=== PATIENT | female | born 1990 | race Caucasian/White ===

== ENCOUNTER 2016-04-19 22:35 | Emergency (ER) | payer OTHER ==
[2016-04-19 22:51] VITALS: BP 141/68; PULSE 103; TEMP 98; BMI 30.4
--- NOTE | 2016-04-20 00:21 | PDOC ---
History of Present Illness - General Chief Complaint: Sore Throat Stated Complaint: SOAR THROAT Time Seen by Provider: 04/20/16 00:10 History Source: Patient Exam Limitations: No Limitations - History of Present Illness Timing/Duration: other (x4d) Past History - Past Medical History Allergies/Adverse Reactions: Allergies Allergy/AdvReac Type Severity Reaction Status Date / Time No Known Allergies Allergy Verified 04/19/16 22:48 Home Medications: Ambulatory Orders NK [No Known Home Medication] 04/19/16 Anemia: No Asthma: No Cancer: No Cardiac Disorders: No CVA: No COPD: No CHF: No DVT: No Dementia: No Diabetes: No HTN: Yes (h/o labile htn) Suicide Attempt (Hx): No Seizures: No Thyroid Disease: No - Immunization History Td Vaccination: Yes Immunization Up to Date: Yes - Psycho/Social/Smoking Cessation Hx Anxiety: No Suicidal Ideation: No Smoking Status: No Smoking History: Never smoked Have you smoked in the past 12 months: No Number of Cigarettes Smoked Daily: 0 Information on smoking cessation initiated: No Hx Alcohol Use: No Drug/Substance Use Hx: No Substance Use Type: None Hx Substance Use Treatment: No Review of Systems - Review of Systems Able to Perform ROS?: Yes Comments:: 04/20/16 00:51 CONSTITUTIONAL: Absent: fever, chills, diaphoresis, generalized weakness, malaise, loss of appetite HEENT: +sore throat; R>L ear "fullness" Absent: rhinorrhea, nasal congestion, throat swelling, difficulty swallowing, mouth swelling, ear pain, eye pain, visual Changes CARDIOVASCULAR: Absent: chest pain, loss of consciousness, palpitations, irregular heart rate, peripheral edema RESPIRATORY: Absent: cough, shortness of breath, dyspnea with exertion, orthopnea, wheezing, stridor, hemoptysis GASTROINTESTINAL: Absent: abdominal pain, abdominal distension, nausea, vomiting, diarrhea, constipation, melena, hematochezia GENITOURINARY: Absent: dysuria, frequency, urgency, hesitancy, hematuria, flank pain, genital pain MUSCULOSKELETAL: Absent: myalgia, arthralgia, joint swelling SKIN: Absent: rash, itching, pallor HEMATOLOGIC/IMMUNOLOGIC: Absent: easy bleeding, easy bruising, lymphadenopathy, frequent infections ENDOCRINE: Absent: unexplained weight gain, unexplained weight loss, heat intolerance, cold intolerance NEUROLOGIC: Absent: headache, focal weakness or paresthesias, dizziness, unsteady gait, seizure, mental status changes, bladder or bowel incontinence PSYCHIATRIC: Absent: anxiety, depression, suicidal or homicidal ideation, hallucinations. Is the patient limited Tamazight proficient: No *Physical Exam - Vital Signs Last Vital Signs Temp Pulse Resp BP Pulse Ox 98.0 F 103 H 14 141/68 100 04/19/16 22:49 04/19/16 22:49 04/19/16 22:49 04/19/16 22:49 04/19/16 22:49 - Physical Exam Comments: 04/20/16 00:53 GENERAL: Well developed, well nourished. Awake and alert. No acute distress. HEENT: Normocephalic, atraumatic. PERRLA, EOMI. No conjunctival pallor. Sclera are non- icteric. Moist mucous membranes. Oropharynx is clear. NECK: Supple. Full ROM. No JVD. Carotid pulses 2+ and symmetric, without bruits. No thyromegaly. No lymphadenopathy. CARDIOVASCULAR: Regular rate and rhythm. No murmurs, rubs, or gallops. Distal pulses are 2+ and symmetric. PULMONARY: No evidence of respiratory distress. Lungs clear to auscultation bilaterally. No wheezing, rales or rhonchi. ABDOMINAL: Soft. Non-tender. Non-distended. No rebound or guarding. No organomegaly. Normoactive bowel sounds. MUSCULOSKELETAL Normal range of motion at all joints. No bony deformities or tenderness. No CVA tenderness. EXTREMITIES: No cyanosis. No clubbing. No edema. No calf tenderness. SKIN: Warm and dry. Normal capillary refill. No rashes. No jaundice. NEUROLOGICAL: Alert, awake, appropriate. Cranial nerves 2-12 intact. No deficits to light touch and temperature in face, upper extremities and lower extremities. No motor deficits in the in face, upper extremities and lower extremities. Normoreflexic in the upper and lower extremities. Normal speech. Toes are down- going bilaterally. Gait is normal without ataxia. PSYCHIATRIC: Cooperative. Good eye contact. Appropriate mood and affect. ED Treatment Course - LABORATORY CBC & Chemistry Diagram: 04/20/16 00:36 04/20/16 00:36 *DC/Admit/Observation/Transfer Diagnosis at time of Disposition: Viral infection Acute pharyngitis Qualifiers: Pharyngitis/tonsillitis etiology: unspecified etiology Qualified Code(s): J02.9 - Acute pharyngitis, unspecified - Discharge Dispostion Disposition: HOME Condition at time of disposition: Improved - Patient Instructions Printed Discharge Instructions: DI for Viral Syndrome, DI for Viral Pharyngitis Additional Instructions: Rest Increase fluids Gargle with salt water Take tylenol/motrin as needed for fever/pain Return to the ER for severe/persistent/worsening symptoms Progress Note - Progress Note Progress Note: 25-year-old female presents to the emergency department complaining of a sore throat 4 days with right greater than left ear fullness without fever, chills, dizziness, lightheadedness, nausea/vomiting, difficulty swallowing, chest pain, shortness of breath, abdominal pains, flank pains, extremity numbness or tingling sensation. Patient says she feels generalized malaise. Her and son was recently diagnosed with a virus.
[2016-04-20] MEDS ORDERED: SODIUM CHLORIDE 1,000 ML IV STA (00:23)
--- NOTE | 2016-04-20 00:25 | PDOC ---
*Physical Exam - Vital Signs Last Vital Signs Temp Pulse Resp BP Pulse Ox 98.0 F 103 H 14 141/68 100 04/19/16 22:49 04/19/16 22:49 04/19/16 22:49 04/19/16 22:49 04/19/16 22:49 ED Treatment Course - LABORATORY CBC & Chemistry Diagram: 04/20/16 00:36 04/20/16 00:36 Medical Decision Making - Medical Decision Making 04/20/16 00:25 Pt seen by the Advanced Practice Provider under my direct supervision Ancillary studies reviewed I agree with plan as outlined by the Advanced Practice Provider BUCK Coles *DC/Admit/Observation/Transfer Diagnosis at time of Disposition: Acute pharyngitis, Viral syndrome - Discharge Dispostion Disposition: HOME Condition at time of disposition: Improved - Referrals Referrals: Po Kyle MD [Primary Care Provider] - - Patient Instructions Printed Discharge Instructions: DI for Viral Pharyngitis, DI for Viral Syndrome Additional Instructions: Rest Increase fluids Gargle with salt water Take tylenol/motrin as needed for fever/pain Return to the ER for severe/persistent/worsening symptoms
[2016-04-20 01:11] LABS: BASOPHIL 1.4 % (0-2.0); EOSINOPHIL 1.4 % (0-4.5); MCH 29.5 pg (25.7-33.7); MCHC 34.1 g/dl (32.0-36.0); MEAN CELL VOLUME 86.6 fl (80-96); MEAN PLT VOLUME 8.8 fl (7.5-11.1); NEUTROPHILS 56.8 % (42.8-82.8); PLATELET COUNT 301 K/MM3 (134-434); RDW 12.8 % (11.6-15.6); WHITE BLOOD COUNT 10.1 K/mm3 (4.0-10.0)
[2016-04-20 01:43] LABS: ALBUMIN 4.3 g/dl (3.4-5.0); ALK PHOS 93 U/L (45-117); ANION GAP 12 (8-16); BILIRUBIN,TOTAL 0.4 mg/dL (0.2-1.0); CALCIUM 9.5 mg/dL (8.5-10.1); CO2 26 mmol/L (21-32); CREATININE 0.6 mg/dL (0.55-1.02); GLUCOSE,RANDOM 79 mg/dL (74-106); SGOT/AST 13 U/L (15-37); SGPT/ALT 18 U/L (12-78); TOT PROT 8.1 g/dl (6.4-8.2)
== END 2016-04-20 04:48 | disposition home or self-care (01) ==
LOC: JER 22:35
PROC: 3E0337Z Introduction of Electrolytic and Water Balance Substance into Peripheral Vein, Percutaneous Approach (ICD-10-PCS; principal; 2016-04-19)
DX: J02.9 Acute pharyngitis, unspecified (principal); I10 Essential (primary) hypertension
CPT/HCPCS: 36415; 80053; 85025; 87070; 87430; 87804; 96360; 99281-25

== ENCOUNTER 2016-04-22 16:49 | Emergency (ER) | payer OTHER ==
[2016-04-22 16:54] VITALS: BP 145/93; TEMP 98.3; BMI 30.4
[2016-04-22] MEDS ORDERED: SODIUM CHLORIDE 0.9% 1000 ML INFUS.BAG IV ONE (20:13)
[2016-04-22] MEDS ORDERED: ONDANSETRON 4 MG/2 ML VIAL IVPUSH ONE (20:13)
[2016-04-22] MEDS ORDERED: ACETAMINOPHEN 325 MG TABLET (FP) PO ONE (20:14)
[2016-04-22] MEDS ORDERED: ONDANSETRON 4 MG/2 ML VIAL ONE (20:38)
[2016-04-22] MEDS ORDERED: ACETAMINOPHEN 325 MG TABLET (FP) ONE (20:38)
[2016-04-22] MEDS ORDERED: ALBUTEROL SO4 2.5/IPRATROPIUM 0.5 INH SOL 3 ML VIAL.NEB. NEB ONE ×2 (20:48→21:01)
--- NOTE | 2016-04-22 20:48 | PDOC ---
History of Present Illness - General Chief Complaint: Nausea/Vomiting Stated Complaint: VOMITING/BODY ACHES/SORE THROAT/SOB Time Seen by Provider: 04/22/16 19:32 - History of Present Illness Initial Comments: 04/22/16 20:45 CHIEF COMPLAINT: vomiting, URI symptoms HISTORY OF PRESENT ILLNESS: 25 yo F with no PMH returns to ED today with vomiting, headache, body aches, sore throat, runny nose. Patient states she vomited 8 times today.She denies fever, diarrhea but reports chills. She was seen in this ED two days ago and discharged with diagnosis of viral syndrome. She has not taken any medications at home other than 800 mg of ibuprofen one time today without relief. No recent travel or sick contacts. PAST MEDICAL HISTORY: Denies past medical history FAMILY HISTORY: Denies SOCIAL HISTORY:Denies tobacco, alcohol, illicit drug use. SURGICAL HISTORY: Denies ALLERGIES: naproxen REVIEW OF SYSTEMS General/Constitutional: Denies fever or chills. Denies weakness, weight change. HEENT: Denies change in vision. Denies ear pain or discharge. Denies sore throat. Cardiovascular: Denies chest pain or shortness of breath. Respiratory: Denies cough, wheezing, or hemoptysis. Gastrointestinal: Denies nausea, vomiting, diarrhea or constipation. Denies rectal bleeding. Genitourinary: Denies dysuria, frequency, or change in urination. Musculoskeletal: Denies joint or muscle swelling or pain. Denies neck or back pain. Skin and breasts: Denies rash or easy bruising. Neurologic: Denies headache, vertigo, loss of consciousness, or loss of sensation. PHYSICAL EXAM General Appearance: Well-appearing, appropriately dressed. No apparent distress , no intoxication. HEENT: EOMI, PERRLA, normal ENT inspection, normal voice, TMs normal, pharynx normal. No conjunctival pallor. No photophobia, scleral icterus. Neck: Supple. Trachea midline. No tenderness, rigidity, carotid bruit, stridor , lymphadenopathy, or thyromegaly. Respiratory/Chest: Wheezing to lower lobes bilaterally. No shortness of breath , chest tenderness, respiratory distress, accessory muscle use. No crackles, rales, rhonchi, stridor, dullness Cardiovascular: RRR. S1, S2. No JVD, murmur, bradycardia, tachycardia. Vascular Pulses: Dorsalis-Pedis (R): 2+, Dorsalis-Pedis (L): 2+ Gastrointestinal/Abdominal: Normal bowel sounds. Abdomen soft, non-distended. No tenderness or rebound tenderness. No organomegaly, pulsatile mass, guarding , hernia, hepatomegaly, splenomegaly. Lymphatic: No adenopathy, tenderness. Musculoskeletal/Extremities: Normal inspection. FROM of all extremities, normal capillary refill. Pelvis Stable. No CVA tenderness. No tenderness to extremities, pedal edema, swelling, erythema or deformity. Integumentary: Appropriate color, dry, warm. 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 Fully oriented, alert. Appropriate mood/affect. Motor strength 5/5. No appreciable EOM palsy, facial droop or sensory deficit. 04/22/16 21:43 04/22/16 21:52 Past History - Past Medical History Allergies/Adverse Reactions: Allergies Allergy/AdvReac Type Severity Reaction Status Date / Time naproxen Allergy Verified 04/22/16 16:51 Home Medications: Ambulatory Orders Acetaminophen [Tylenol Extra Strength] 500 mg PO TID PRN #21 tablet 04/22/16 Albuterol Sulfate Inhaler - [Ventolin HFA Inhaler -] 1 - 2 inh PO Q4H PRN #1 inhaler 04/22/16 Loratadine [Claritin] 10 mg PO DAILY #14 tablet 04/22/16 Ondansetron [Zofran Odt -] 4 mg SL TID #21 od.tablet 04/22/16 Anemia: No Asthma: No Cancer: No Cardiac Disorders: No CVA: No COPD: No CHF: No DVT: No Dementia: No Diabetes: No HTN: Yes (h/o labile htn) Suicide Attempt (Hx): No Seizures: No Thyroid Disease: No Other medical history: migraines - Immunization History Td Vaccination: Yes Immunization Up to Date: Yes - Psycho/Social/Smoking Cessation Hx Anxiety: No Suicidal Ideation: No Smoking Status: No Smoking History: Never smoked Have you smoked in the past 12 months: No Number of Cigarettes Smoked Daily: 0 Information on smoking cessation initiated: No Hx Alcohol Use: No Drug/Substance Use Hx: No Substance Use Type: None Hx Substance Use Treatment: No *Physical Exam - Vital Signs Last Vital Signs Temp Pulse Resp BP Pulse Ox 98.3 F 84 18 145/93 100 04/22/16 16:52 04/22/16 16:52 04/22/16 16:52 04/22/16 16:52 04/22/16 16:52 ED Treatment Course - RADIOLOGY Radiology Studies Ordered: Category Date Time Status CHEST PA & LAT [RAD] Stat Radiology 04/22/16 20:12 Ordered - Medications Given in the ED: ED Medications Discontinued Medications Generic Name Dose Route Start Last Admin Trade Name Freq PRN Reason Stop Dose Admin Acetaminophen 650 mg 04/22/16 20:14 04/22/16 20:43 Tylenol - PO 04/22/16 20:15 650 mg ONCE ONE Administration Ondansetron HCl 4 mg 04/22/16 20:13 04/22/16 20:43 Zofran Injection IVPUSH 04/22/16 20:14 4 mg ONCE ONE Administration Sodium Chloride 1,000 ml 04/22/16 20:13 04/22/16 20:43 Normal Saline - IV 04/22/16 20:14 1,000 ml ONCE ONE Administration Medical Decision Making - Medical Decision Making 04/22/16 21:52 25 yo F with no PMH returns to ED today with vomiting, headache, body aches, sore throat, runny nose. -CBC, CMP from previous visit 24 hours ago all WNL. -Serum -IVF -Duoneb -Tylenol po -CXR Chest x-ray negative for acute pathology, no conslidation or infiltrates appreciated. Patient's vital signs are stable and there is no indications of pneumonia. Patient's symptoms most likely secondary to viral illness as discussed previously. Will discharged with symptomatic treatment. -Albuterol inhaler -Tylenol 650 mg TID PRN fever -Claritin 10 mg po daily *DC/Admit/Observation/Transfer Diagnosis at time of Disposition: Viral respiratory illness, Acute wheezy bronchitis - Discharge Dispostion Disposition: HOME Condition at time of disposition: Stable Admit: No - Prescriptions Prescriptions: Loratadine [Claritin] 10 mg PO DAILY #14 tablet Acetaminophen [Tylenol Extra Strength] 500 mg PO TID PRN #21 tablet PRN Reason: Fever Or Pain Albuterol Sulfate Inhaler - [Ventolin HFA Inhaler -] 1 - 2 inh PO Q4H PRN #1 inhaler PRN Reason: Short Of Breath/Wheezing Ondansetron [Zofran Odt -] 4 mg SL TID #21 od.tablet - Referrals Referrals: Po Kyle MD [Primary Care Provider] - - Patient Instructions Printed Discharge Instructions: DI for Viral Upper Respiratory Infection -- Adult, DI for Viral Syndrome Additional Instructions: Please take medications as prescribed and follow up with your primary care doctor this week. You may need further evaluation and management of your blood pressure. If you experience severe shortness of breath unresolved by the inhaler , fever that does not go away despite taking medication, persistent vomiting, diarrhea, rectal bleeding, abdominal pain, or any new or worsening symptoms, please return to the ER. - Post Discharge Activity Work/School Note: Back to Work
[2016-04-22 22:19] VITALS: PULSE 87
== END 2016-04-22 22:18 | disposition home or self-care (01) ==
LOC: JER 16:49
PROC: 3E0F7GC Introduction of Other Therapeutic Substance into Respiratory Tract, Via Natural or Artificial Opening (ICD-10-PCS; principal; 2016-04-22)
PROC: 3E033GC Introduction of Other Therapeutic Substance into Peripheral Vein, Percutaneous Approach (ICD-10-PCS; 2016-04-22)
DX: J20.9 Acute bronchitis, unspecified (principal); B97.89 Other viral agents as the cause of diseases classified elsewhere
CPT/HCPCS: 71020-TC; 84703; 87804; 94640; 96374; 99283-25

== ENCOUNTER → 2016-05-08 | Emergency (ER) | payer OTHER ==
[~2016-05-08] MED LIST: ACETAMINOPHEN 325 MG TABLET (FP) ONE; ACETAMINOPHEN 325 MG TABLET (FP) PO ONE; AMOX TR/POT CLAV 875MG/125MG TABLETS (FP) ONE; AMOX TR/POT CLAV 875MG/125MG TABLETS (FP) PO ONE
[2016-05-08 20:42] VITALS: BP 145/93; PULSE 80; TEMP 98.3; BMI 30.1
--- NOTE | 2016-05-08 22:45 | PDOC ---
History of Present Illness - General Chief Complaint: Ear Problem Stated Complaint: EAR PROBLEM Time Seen by Provider: 05/08/16 21:55 History Source: Patient Exam Limitations: No Limitations - History of Present Illness Initial Comments: 05/08/16 22:42 25yo Female patient presents to ED c/o right earache x 2 days getting worse. Denies fever, but states she has upper respiratory infection for about a month long that recently subsided. Denies any other complaints at this time. LNMP: Jan- IRREGULAR (PCOS) Timing/Duration: 1 week, getting worse Severity: severe Modifying Factors: worse with: cold therapy, eating, immobilization, medication , movement, rest, other Associated Symptoms: denies: denies symptoms, chest pain, cough, diaphoresis, fever/chills, headaches, loss of appetite, malaise, nausea/vomiting, rash, seizure, shortness of breath, syncope, weakness, other Past History - Travel Traveled outside of the country in the last 30 days: No Close contact w/someone who was outside of country & ill: No - Past Medical History Allergies/Adverse Reactions: Allergies Allergy/AdvReac Type Severity Reaction Status Date / Time naproxen Allergy Verified 05/08/16 20:39 Home Medications: Ambulatory Orders Amoxicillin/Potassium Clav [Augmentin 875-125 Tablet] 1 each PO Q12H #14 tablet 05/08/16 Anemia: No Asthma: No Cancer: No Cardiac Disorders: No CVA: No COPD: No CHF: No DVT: No Dementia: No Diabetes: No HTN: Yes (h/o labile htn) Suicide Attempt (Hx): No Seizures: No Thyroid Disease: No - Immunization History Td Vaccination: Yes Immunization Up to Date: Yes - Psycho/Social/Smoking Cessation Hx Anxiety: No Suicidal Ideation: No Smoking Status: No Smoking History: Never smoked Have you smoked in the past 12 months: No Number of Cigarettes Smoked Daily: 0 Hx Alcohol Use: No Drug/Substance Use Hx: No Substance Use Type: None Hx Substance Use Treatment: No Review of Systems - Review of Systems Able to Perform ROS?: Yes Is the patient limited Georgian proficient: No Constitutional: No: Chills, Fever HEENTM: Yes: Ear Pain. No: Ear Discharge, Nose Congestion, Throat Pain, Mouth Pain, Difficulty Swallowing, Mouth Swelling Respiratory: No: Cough, Shortness of Breath, Stridor, Wheezing Cardiac (ROS): No: Chest Pain, Syncope ABD/GI: No: Constipated, Diarrhea, Nausea, Poor Appetite, Poor Fluid Intake, Vomiting All Other Systems: Reviewed and Negative *Physical Exam - Vital Signs Last Vital Signs Temp Pulse Resp BP Pulse Ox 98.3 F 80 18 145/93 100 05/08/16 20:40 05/08/16 20:40 05/08/16 20:40 05/08/16 20:40 05/08/16 20:40 05/08/16 22:44 - Physical Exam General Appearance: Yes: Nourished, Appropriately Dressed, Apparent Distress, Moderate Distress. No: Mild Distress, Severe Distress HEENT: positive: EOMI, NEGRITA, Normal Voice, Symmetrical, Pharynx Normal, TM Erythema (and retracted.). negative: Muffled/Hoarse voice, Tonsillar Exudate, Tonsillar Erythema, Nasal Congestion, Rhinorrhea, TM Bulging, TM Dull Neck: positive: Trachea midline, Supple. negative: Stridor, Lymphadenopathy (R) , Lymphadenopathy (L) Respiratory/Chest: positive: Lungs Clear, Normal Breath Sounds. negative: Respiratory Distress, Accessory Muscle Use, Labored Respiration, Rapid RR, Stridor, Wheezing Cardiovascular: positive: Regular Rhythm, Regular Rate. negative: Edema, JVD, Murmur Gastrointestinal/Abdominal: negative: Distended, Guarding, Rebound, Tenderness Musculoskeletal: positive: Normal Inspection. negative: CVA Tenderness Extremity: positive: Normal Capillary Refill, Normal Inspection, Normal Range of Motion. negative: Pedal Edema, Swelling Integumentary: positive: Normal Color, Dry, Warm. 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 NML intact, Fully Oriented, Alert, Normal Mood/ Affect, Normal Response, Motor Strength 5/5 *DC/Admit/Observation/Transfer Diagnosis at time of Disposition: Acute otitis media Qualifiers: Otitis media type: other nonsuppurative Laterality: right Recurrence: not specified Qualified Code(s): H65.191 - Other acute nonsuppurative otitis media, right ear - Discharge Dispostion Disposition: HOME Condition at time of disposition: Stable Admit: No - Prescriptions Prescriptions: Amoxicillin/Potassium Clav [Augmentin 875-125 Tablet] 1 each PO Q12H #14 tablet - Patient Instructions Printed Discharge Instructions: Middle Ear Infection Additional Instructions: FOLLOW UP WITH YOUR PRIMARY CARE PROVIDER NEEDED. TAKE YOU MEDICATIONS PRESCRIBED. TYLENOL FOR PAIN NEEDED. Print Language: FAROESE
--- NOTE | 2016-05-09 00:06 | PDOC ---
*Physical Exam - Vital Signs Last Vital Signs Temp Pulse Resp BP Pulse Ox 98.3 F 80 18 145/93 100 05/08/16 20:40 05/08/16 20:40 05/08/16 20:40 05/08/16 20:40 05/08/16 20:40 ED Treatment Course - Medications Given in the ED: ED Medications Discontinued Medications Generic Name Dose Route Start Last Admin Trade Name Presley PRN Reason Stop Dose Admin Acetaminophen 650 mg 05/08/16 22:41 05/08/16 23:09 Tylenol - PO 05/08/16 22:42 650 mg ONCE ONE Administration Amoxicillin/Clavulanate Potassium 1 tab 05/08/16 22:41 05/08/16 23:08 Augmentin - 875mg Tablet PO 05/08/16 22:42 1 tab ONCE ONE Administration Medical Decision Making - Medical Decision Making 05/09/16 00:06 agree with care from YARD ENGINEER Autsen *DC/Admit/Observation/Transfer Diagnosis at time of Disposition: Acute otitis media Qualifiers: Otitis media type: other nonsuppurative Laterality: right Recurrence: not specified Qualified Code(s): H65.191 - Other acute nonsuppurative otitis media, right ear - Discharge Dispostion Disposition: HOME Condition at time of disposition: Stable - Prescriptions Prescriptions: Amoxicillin/Potassium Clav [Augmentin 875-125 Tablet] 1 each PO Q12H #14 tablet - Referrals Referrals: Po Kyle MD [Primary Care Provider] - - Patient Instructions Printed Discharge Instructions: Middle Ear Infection Additional Instructions: FOLLOW UP WITH YOUR PRIMARY CARE PROVIDER NEEDED. TAKE YOU MEDICATIONS PRESCRIBED. TYLENOL FOR PAIN NEEDED. Print Language: CONGOLESE - Post Discharge Activity
== END | disposition home or self-care (01) ==
LOC: JERFT 20:16 → JER 20:16
DX: H65.191 Other acute nonsuppurative otitis media, right ear (principal); I10 Essential (primary) hypertension
CPT/HCPCS: 99281-25

== ENCOUNTER 2016-06-15 06:10 | Emergency (ER) | payer OTHER ==
[2016-06-15 06:29] VITALS: BP 116/73; PULSE 76; TEMP 98.3; BMI 30.9
--- NOTE | 2016-06-15 06:29 | PDOC ---
History of Present Illness - General History Source: Patient Exam Limitations: No Limitations - History of Present Illness Timing/Duration: 4-6 hours Severity: mild <Roldan Coles - Last Filed: 06/15/16 06:47> <Maximo Bose - Last Filed: 06/23/16 06:19> - General Chief Complaint: Wound Stated Complaint: PAIN Time Seen by Provider: 06/15/16 06:27 Past History - Travel Traveled outside of the country in the last 30 days: No Close contact w/someone who was outside of country & ill: No - Past Medical History Anemia: No Asthma: No Cancer: No Cardiac Disorders: No CVA: No COPD: No CHF: No DVT: No Dementia: No Diabetes: No HTN: Yes (h/o labile htn) Suicide Attempt (Hx): No Seizures: No Thyroid Disease: No - Immunization History Td Vaccination: Yes Immunization Up to Date: Yes - Psycho/Social/Smoking Cessation Hx Anxiety: No Suicidal Ideation: No Smoking Status: No Smoking History: Never smoked Have you smoked in the past 12 months: No Number of Cigarettes Smoked Daily: 0 Hx Alcohol Use: No Drug/Substance Use Hx: No Substance Use Type: None Hx Substance Use Treatment: No <Roldan Coles - Last Filed: 06/15/16 06:47> <Maximo Bose - Last Filed: 06/23/16 06:19> - Past Medical History Allergies/Adverse Reactions: Allergies Allergy/AdvReac Type Severity Reaction Status Date / Time naproxen Allergy Verified 06/15/16 06:27 Home Medications: Ambulatory Orders Acetaminophen W/ Codeine #3 [Tylenol # 3 -] 1 tab PO Q6H #15 tablet MDD 4 Cephalexin [Keflex] 500 mg PO TID #15 capsule 06/15/16 Review of Systems - Review of Systems Able to Perform ROS?: Yes Comments:: 06/15/16 06:44 CONSTITUTIONAL: Absent: fever, chills, diaphoresis, generalized weakness, malaise, loss of appetite HEENT: Absent: rhinorrhea, nasal congestion, throat pain, throat swelling, difficulty swallowing, mouth swelling, ear pain, eye pain, visual Changes SKIN: +left great toe pain Absent: rash, itching, pallor Is the patient limited Korean proficient: No <Roldan Coles - Last Filed: 06/15/16 06:47> *Physical Exam - Physical Exam Comments: 06/15/16 06:45 GENERAL: Well developed, well nourished. Awake and alert. No acute distress. HEENT: Normocephalic, atraumatic. PERRLA, EOMI. No conjunctival pallor. Sclera are non- icteric. Moist mucous membranes. Oropharynx is clear. NECK: Supple. Full ROM. No JVD. Carotid pulses 2+ and symmetric, without bruits. No thyromegaly. No lymphadenopathy. MUSCULOSKELETAL Normal range of motion at all joints. No bony deformities or tenderness. No CVA tenderness. EXTREMITIES: No cyanosis. No clubbing. No edema. No calf tenderness. SKIN: Left great toe:purulent drainage to medial nail fold, neg lymphangitis; pain on palp Warm and dry. Normal capillary refill. No rashes. No jaundice. <Roldan Coles - Last Filed: 06/15/16 06:47> - Vital Signs Last Vital Signs Temp Pulse Resp BP Pulse Ox 98.3 F 76 20 116/73 98 06/15/16 06:27 06/15/16 06:27 06/15/16 06:27 06/15/16 06:27 06/15/16 06:27 <Maximo Bose - Last Filed: 06/23/16 06:19> ED Treatment Course - ADDITIONAL ORDERS Additional order review: 06/15/16 06:30 Gram Stain - Final Toe - Left Hallux Wound Culture - Final Morganella Morganii Staphylococcus Aureus Klebsiella Pneumoniae Enterococcus Faecalis - Medications Given in the ED: ED Medications Discontinued Medications Generic Name Dose Route Start Last Admin Trade Name Mckayq PRN Reason Stop Dose Admin Acetaminophen/Codeine Phosphate 1 tab 06/15/16 06:37 06/15/16 06:44 Tylenol # 3 - PO 06/15/16 06:38 1 tab ONCE ONE Administration Cephalexin HCl 500 mg 06/15/16 06:34 06/15/16 06:44 Keflex - PO 06/15/16 06:35 500 mg ONCE ONE Administration <Maximo Bose - Last Filed: 06/23/16 06:19> Medical Decision Making - Medical Decision Making 06/23/16 06:18 ED Attending note: I was available, involved in the case with the mid level provider as needed and in a limited capacity. <Maximo Bose - Last Filed: 06/23/16 06:19> *DC/Admit/Observation/Transfer - Discharge Dispostion Admit: No <SanketRoldan - Last Filed: 06/15/16 06:47> <Maximo Bose - Last Filed: 06/23/16 06:19> Diagnosis at time of Disposition: Paronychia Qualifiers: Laterality: left Qualified Code(s): L03.012 - Cellulitis of left finger - Discharge Dispostion Disposition: HOME Condition at time of disposition: Stable - Prescriptions Prescriptions: Cephalexin [Keflex] 500 mg PO TID #15 capsule Acetaminophen W/ Codeine #3 [Tylenol # 3 -] 1 tab PO Q6H #15 tablet MDD 4 - Referrals Referrals: Po Kyle MD [Primary Care Provider] - Rojelio Bartlett MD [Staff Physician] - - Patient Instructions Printed Discharge Instructions: DI for Paronychia Additional Instructions: Warm soaks Tylenol/Motrin as needed for pain Antibiotics as prescribed The results of your wound culture will come bacin in 2-3 days Return to the ER for severe/persistent/worsening symptoms, red streaks, increase drainage, fever Progress Note - Progress Note Progress Note: 25-year-old female presents to the emergency department complaining of pain and purulent discharge on the left great toe after having a pedicure earlier this evening. Patient denies any fever, chills, extremity numbness/tingling sensation , lymphangitis. Last tetanus x4yrsa ago <Roldan Coles - Last Filed: 06/15/16 06:47>
[2016-06-15] MEDS ORDERED: CEPHALEXIN MONOHYDRATE 500 MG CAPSULE (UD) PO ONE (06:34)
[2016-06-15] MEDS ORDERED: ACETAMINOPHEN WITH CODEINE 300MG/30MG TABLET PO ONE (06:37)
[2016-06-15] MEDS ORDERED: ACETAMINOPHEN WITH CODEINE 300MG/30MG TABLET ONE (06:42)
[2016-06-15] MEDS ORDERED: CEPHALEXIN MONOHYDRATE 250 MG CAPSULE (FP) ONE (06:42)
== END 2016-06-15 06:54 | disposition home or self-care (01) ==
LOC: JER 06:10
DX: L03.032 Cellulitis of left toe (principal); I10 Essential (primary) hypertension
CPT/HCPCS: 87070; 87186; 87205; 99281-25

== ENCOUNTER 2016-09-20 16:37 | Emergency (ER) | payer OTHER ==
[2016-09-20 16:42] VITALS: BMI 30.1
--- NOTE | 2016-09-20 17:25 | PDOC ---
History of Present Illness - General Chief Complaint: Pain Stated Complaint: RT HAND NUMBNESS Time Seen by Provider: 09/20/16 16:59 History Source: Patient Exam Limitations: No Limitations - History of Present Illness Initial Comments: 09/20/16 17:09 Patient is a 26-year-old female history of PCOS and migraines, presents for evaluation of pain and stiffness to the right second finger. Patient reports that last evening she started to develop pain, redness and swelling to the right second finger, inferior to the PIP. Denies bug bite. Denies injury or trauma. Now feels pins and needles to the area. Pain with passive extension. Flexed posture of digit. Past Medical History: Denies. Allergies: Naprosyn Medications: None Family History: Non-contributory Social History: Denies smoking, alcohol use, or IVDU Review of Systems GENERAL/CONSTITUTIONAL: No fever or chills. No weakness. No weight change. HEAD, EYES, EARS, NOSE AND THROAT: No change in vision. No ear pain or discharge. No sore throat. CARDIOVASCULAR: No chest pain or shortness of breath. RESPIRATORY: No cough, wheezing, or hemoptysis. GASTROINTESTINAL: No nausea, vomiting, diarrhea or constipation. No rectal bleeding. GENITOURINARY: No dysuria, frequency, or change in urination. MUSCULOSKELETAL: Pain to the right second digit. Finger hold in flexion. SKIN: No rash or easy bruising. Erythema to the base of the right second finger , palmar surface. NEUROLOGIC: No headache, vertigo, loss of consciousness, or loss of sensation. Physical Exam: GENERAL: The patient is awake, alert, and fully oriented, in no acute distress. LUNGS: Breath sounds equal, clear to auscultation bilaterally. No wheezes, and no crackles. MUSCULOSKELETAL: Decreased range of motion to right second finger. No digital ischemia, finger hold in flexion. Tenderness along the tendon sheath. Pain with passive extension. No clubbing or cyanosis. Pain with passive extension of the left second finger. NEUROLOGICAL: Cranial nerves II through XII grossly intact. Normal speech, normal gait. SKIN: Warm, Dry, normal turgor, no rashes or lesions noted. Edema and erythema to the base of the right second finger. Worse on palmar surface + Kanavels sign. 09/21/16 08:13 Past History - Past Medical History Allergies/Adverse Reactions: Allergies Allergy/AdvReac Type Severity Reaction Status Date / Time naproxen Allergy Verified 09/20/16 16:38 Home Medications: Ambulatory Orders Amoxicillin/Potassium Clav [Augmentin 875-125 Tablet] 1 each PO BID #10 tablet 09/20/16 Anemia: No Asthma: No Cancer: No Cardiac Disorders: No CVA: No COPD: No CHF: No DVT: No Dementia: No Diabetes: No HTN: Yes (h/o labile htn) Suicide Attempt (Hx): No Seizures: No Thyroid Disease: No Other medical history: migraines, polycystic ovaries - Immunization History Td Vaccination: Yes Immunization Up to Date: Yes - Psycho/Social/Smoking Cessation Hx Anxiety: No Suicidal Ideation: No Smoking Status: No Smoking History: Never smoked Have you smoked in the past 12 months: No Number of Cigarettes Smoked Daily: 0 Information on smoking cessation initiated: No Hx Alcohol Use: No Drug/Substance Use Hx: No Substance Use Type: None Hx Substance Use Treatment: No *Physical Exam - Vital Signs Last Vital Signs Temp Pulse Resp BP Pulse Ox 98.0 F 88 18 135/87 100 09/20/16 16:39 09/20/16 16:39 09/20/16 16:39 09/20/16 16:39 09/20/16 16:39 ED Treatment Course - LABORATORY CBC & Chemistry Diagram: 09/20/16 20:54 09/20/16 19:15 - RADIOLOGY Radiology Studies Ordered: Category Date Time Status HAND- RIGHT [RAD] Stat Radiology 09/20/16 17:08 Ordered Medical Decision Making - Medical Decision Making 09/20/16 18:07 A/P: Patient with decreased mobility to right second finger, finger hold in flexion. Patient with pain on passive extension. Differential diagnosis include: pyogenic flexor tenosynovitis, gonococcal tenosynovitis ( low suspicion) , flexor tenosynovitis, flexor sheath infection. Urine CBC CMP Xray Saline lock Spoke to BUCK Joshi, will admit for 24 hours to monitor finger if response to antibiotics vs. dose in ER, assess, possible DC with 24 hour return for follow up. Will treat with Vancomycin, rocephin, awaiting lab results. I am signing this patient out to my colleague: BUCK Coles In brief, this patient is being seen in the ED for a chief complaint of: Swelling ,pain, decreased mobility, finger flexed right second digit. I have completed the initial assessment interview note and have ordered: labs, xray, blood culture, vancomycin, rocephin. I have reviewed the following results: Xray, negative, normal hand Pending results are: CBC, CMP, ESR, CRP, blood cultures Please call the PCP: BUCK Joshi, admit obs, vs tx f/u 24 hours. Plan for disposition is as follows: Pending 09/21/16 08:12 *DC/Admit/Observation/Transfer Diagnosis at time of Disposition: Finger infection - Discharge Dispostion Disposition: HOME Condition at time of disposition: Stable - Prescriptions Prescriptions: Amoxicillin/Potassium Clav [Augmentin 875-125 Tablet] 1 each PO BID #10 tablet - Referrals Referrals: Desean Kennedy MD [Staff Physician] - Po Kyle MD [Primary Care Provider] - - Patient Instructions Additional Instructions: It IS IMPORTANT THAT YOU FOLLOW UP WITH DR. KENNEDY ON FridayRING Take your antibiotics as prescribed/Augmentin Wound check tomorrow in the ER If the redness increases/ you notice red streaks, feer, increase swelling, YOU MUST RETURN TO THE ER
[2016-09-20 19:28] LABS: BASOPHIL 0.6 % (0-2.0); EOSINOPHIL 1.7 % (0-4.5); MCH 28.8 pg (25.7-33.7); MCHC 33.3 g/dl (32.0-36.0); MEAN CELL VOLUME 86.5 fl (80-96); MEAN PLT VOLUME 8.8 fl (7.5-11.1); NEUTROPHILS 60.3 % (42.8-82.8); PLATELET COUNT 289 K/MM3 (134-434); RDW 13.1 % (11.6-15.6); WHITE BLOOD COUNT 8.8 K/mm3 (4.0-10.0)
[2016-09-20] MEDS ORDERED: VANCOMYCIN 1,000 MG in DEXTROSE 5%-WATER - 250 ML IVPB ONE (19:49)
[2016-09-20] MEDS ORDERED: CEFTRIAXONE 1 GM in DEXTROSE 5%-WATER - 50 ML IVPB ONE (19:50)
[2016-09-20 20:02] LABS: ALBUMIN 4.2 g/dl (3.4-5.0); ANION GAP 6 (8-16); CALCIUM 9.1 mg/dL (8.5-10.1); CO2 27 mmol/L (21-32); CREATININE 0.6 mg/dL (0.55-1.02); GLUCOSE,RANDOM 81 mg/dL (74-106); SGOT/AST 14 U/L (15-37); SGPT/ALT 16 U/L (12-78)
[2016-09-20 20:04] LABS: ALK PHOS 96 U/L (45-117); BILIRUBIN,TOTAL 0.7 mg/dL (0.2-1.0); TOT PROT 8.2 g/dl (6.4-8.2)
[2016-09-20] MEDS ORDERED: VANCOMYCIN 1 GRAM (PRE-DOCKED) 250 ML IVPB ONE (20:59)
[2016-09-20] MEDS ORDERED: CEFTRIAXONE 50 ML ONE (21:00)
[2016-09-20 21:04] LABS: BASOPHIL 0.6 % (0-2.0); EOSINOPHIL 1.3 % (0-4.5); MCH 28.9 pg (25.7-33.7); MCHC 33.4 g/dl (32.0-36.0); MEAN CELL VOLUME 86.5 fl (80-96); MEAN PLT VOLUME 8.7 fl (7.5-11.1); NEUTROPHILS 61.2 % (42.8-82.8); PLATELET COUNT 281 K/MM3 (134-434); WHITE BLOOD COUNT 9.5 K/mm3 (4.0-10.0)
--- NOTE | 2016-09-20 22:51 | PDOC ---
*Physical Exam - Vital Signs Last Vital Signs Temp Pulse Resp BP Pulse Ox 98.0 F 88 18 135/87 100 09/20/16 16:39 09/20/16 16:39 09/20/16 16:39 09/20/16 16:39 09/20/16 19:58 ED Treatment Course - LABORATORY CBC & Chemistry Diagram: 09/20/16 20:54 09/20/16 19:15 - ADDITIONAL ORDERS Additional order review: Laboratory Results 09/20/16 09/20/16 19:15 17:28 Sodium 138 Potassium 4.4 Chloride 105 Carbon Dioxide 27 Anion Gap 6 L BUN 9 Creatinine 0.6 Creat Clearance w eGFR > 60 Random Glucose 81 Calcium 9.1 Total Bilirubin 0.7 D AST 14 L ALT 16 Alkaline Phosphatase 96 Total Protein 8.2 Albumin 4.2 Urine HCG, Qual Negative 09/20/16 09/20/16 20:54 19:15 RBC 4.62 4.90 MCV 86.5 86.5 MCHC 33.4 33.3 RDW 13.0 13.1 MPV 8.7 8.8 Neutrophils % 61.2 60.3 Lymphocytes % 30.9 31.1 Monocytes % 6.0 6.3 Eosinophils % 1.3 1.7 Basophils % 0.6 0.6 - Medications Given in the ED: ED Medications Discontinued Medications Generic Name Dose Route Start Last Admin Trade Name Presley PRN Reason Stop Dose Admin Vancomycin HCl 1,000 mg/ 250 mls @ 250 mls/hr 09/20/16 19:49 09/20/16 21:20 Dextrose IVPB 09/20/16 20:48 250 mls/hr ONCE ONE Administration Protocol Ceftriaxone Sodium 1 gm/ 50 mls @ 100 mls/hr 09/20/16 19:50 09/20/16 20:48 Dextrose IVPB 09/20/16 20:19 100 mls/hr ONCE ONE Administration Progress Note - Progress Note Progress Note: Spoke to Dr. Reich/hospitalist. req call ortho back. Pt has never tried outpt therapy. Spoke to BUCK Joshi/ortho. Agrees to d/c pt on abx and f/u in his office in 2 days *DC/Admit/Observation/Transfer Diagnosis at time of Disposition: Finger infection - Discharge Dispostion Disposition: HOME Condition at time of disposition: Stable Admit: No - Prescriptions Prescriptions: Amoxicillin/Potassium Clav [Augmentin 875-125 Tablet] 1 each PO BID #10 tablet - Referrals Referrals: Po Kyle MD [Primary Care Provider] - Desean Kennedy MD [Staff Physician] - - Patient Instructions Additional Instructions: It IS IMPORTANT THAT YOU FOLLOW UP WITH DR. KENNEDY ON FridayRING Take your antibiotics as prescribed/Augmentin Wound check tomorrow in the ER If the redness increases/ you notice red streaks, feer, increase swelling, YOU MUST RETURN TO THE ER
[2016-09-20 23:28] VITALS: BP 130/84; PULSE 80; TEMP 98
== END 2016-09-20 23:29 | disposition home or self-care (01) ==
LOC: JER 16:37 → JERFT 16:37 → JER 23:29
DX: L08.89 Other specified local infections of the skin and subcutaneous tissue (principal)
CPT/HCPCS: 36415; 73130-TC-RT; 80053; 84703; 85025; 85651; 86140; 87040; 96365; 96367; 99283-25

== ENCOUNTER 2016-10-03 22:49 | Emergency (ER) | payer OTHER ==
[2016-10-03 22:58] VITALS: BP 154/95; PULSE 90; TEMP 97.9; BMI 30.9
[2016-10-03] MEDS ORDERED: ACETAMINOPHEN 325 MG TABLET (FP) PO ONE (23:22)
--- NOTE | 2016-10-03 23:28 | PDOC ---
History of Present Illness - General Chief Complaint: Pain Stated Complaint: INFECTION Time Seen by Provider: 10/03/16 23:12 History Source: Patient - History of Present Illness Initial Comments: 10/04/16 00:06 26 year old female s/p amoxicillin for right index finger infection at the sandoval aspect of the PIP joint. patient has followed up with hand surgery currently pending MRI of finger. patient reports that she is in a lot of pain. PMHX Past History - Past Medical History Allergies/Adverse Reactions: Allergies Allergy/AdvReac Type Severity Reaction Status Date / Time naproxen Allergy Verified 10/03/16 22:54 Home Medications: Ambulatory Orders Amoxicillin/Potassium Clav [Augmentin 875-125 Tablet] 1 each PO BID #10 tablet 09/20/16 Anemia: No Asthma: No Cancer: No Cardiac Disorders: No CVA: No COPD: No CHF: No DVT: No Dementia: No Diabetes: No HTN: Yes (h/o labile htn) Suicide Attempt (Hx): No Seizures: No Thyroid Disease: No - Immunization History Td Vaccination: Yes Immunization Up to Date: Yes - Psycho/Social/Smoking Cessation Hx Anxiety: No Suicidal Ideation: No Smoking Status: No Smoking History: Never smoked Have you smoked in the past 12 months: No Number of Cigarettes Smoked Daily: 0 Information on smoking cessation initiated: No Hx Alcohol Use: No Drug/Substance Use Hx: No Substance Use Type: None Hx Substance Use Treatment: No Review of Systems - Review of Systems Able to Perform ROS?: Yes Is the patient limited [place]orese proficient: No Constitutional: No: Symptoms Reported, See HPI, Chills, Diaphoresis, Fever, Loss of Appetite, Malaise, Night Sweats, Weakness, Weight Stable, Unintentional Wgt. Loss, Unexplained wgt Loss, Other Integumentary: Yes: Other (finger pain) *Physical Exam - Vital Signs Last Vital Signs Temp Pulse Resp BP Pulse Ox 97.9 F 90 19 154/95 100 10/03/16 22:54 10/03/16 22:54 10/03/16 22:54 10/03/16 22:54 10/03/16 22:54 - Physical Exam General Appearance: Yes: Appropriately Dressed Extremity: positive: Other (right index finger athe PIP joint full rom, no erythema, warm to touch. mild swelling, ) Integumentary: positive: Normal Color, Dry, Warm Neurologic: positive: Fully Oriented, Alert, Normal Mood/Affect Progress Note - Progress Note Progress Note: A: right index finger pain P: Xray: negative ' pain control. finger splint for comfort. handsurgery follow up *DC/Admit/Observation/Transfer Diagnosis at time of Disposition: Finger pain, right - Discharge Dispostion Disposition: HOME - Patient Instructions Printed Discharge Instructions: DI for Joint Pain Additional Instructions: use finger splint for comfort take tylenol 500 mg every 4-6 hours as needed for pain. follow up with hand surgery as soon as possible.
[2016-10-03] MEDS ORDERED: ACETAMINOPHEN 325 MG TABLET (FP) ONE (23:33)
--- NOTE | 2016-10-04 00:01 | PDOC ---
*Physical Exam - Vital Signs Last Vital Signs Temp Pulse Resp BP Pulse Ox 97.9 F 90 19 154/95 100 10/03/16 22:54 10/03/16 22:54 10/03/16 22:54 10/03/16 22:54 10/03/16 22:54 ED Treatment Course - Medications Given in the ED: ED Medications Discontinued Medications Generic Name Dose Route Start Last Admin Trade Name Presley PRN Reason Stop Dose Admin Acetaminophen 650 mg 10/03/16 23:22 10/03/16 23:35 Tylenol - PO 10/03/16 23:23 650 mg ONCE ONE Administration Medical Decision Making - Medical Decision Making 10/03/16 23:55 26 yo F h/o finger pain Seen by hand Started on Amox presents to the ER for pain able to flex finger Minimal swelling noted on flexor surface of finger No erythema, no warmth, no streaking up hand xray follow up hand Pt seen by Midlevel Provider under my direct supervision Ancillary studies reviewed I agree with plan as outlined by Midlevel Provider *DC/Admit/Observation/Transfer Diagnosis at time of Disposition: Finger pain, right - Discharge Dispostion Disposition: HOME - Patient Instructions Printed Discharge Instructions: DI for Joint Pain Additional Instructions: use finger splint for comfort take tylenol 500 mg every 4-6 hours as needed for pain. follow up with hand surgery as soon as possible.
== END 2016-10-04 00:38 | disposition home or self-care (01) ==
LOC: JER 22:49
DX: M79.644 Pain in right finger(s) (principal)
CPT/HCPCS: 73140-TC-RT; 99282-25

== ENCOUNTER 2016-11-16 19:57 | Emergency (ER) | payer SELFPAY ==
[2016-11-16 20:05] VITALS: BP 156/86; PULSE 105; TEMP 98.8; BMI 31.8
[2016-11-16 22:03] LABS: URINE APPEARANCE CLEAR; URINE BILIRUBIN NEGATIVE (NEGATIVE); URINE BLOOD NEGATIVE (NEGATIVE); URINE COLOR YELLOW; URINE GLUCOSE (UA) NEGATIVE (NEGATIVE); URINE KETONE NEGATIVE (NEGATIVE); URINE LEUK ESTERASE NEGATIVE (NEGATIVE); URINE NITRITE NEGATIVE (NEGATIVE); URINE PROTEIN NEGATIVE (NEGATIVE); URINE UROBILINOGEN NEGATIVE mg/dL (0.2-1.0)
[2016-11-16] MEDS ORDERED: HYDROmorphone HCL CARPU-JECT 1 MG/1 ML DISP.SYRIN IVPUSH ONE (22:19)
[2016-11-16] MEDS ORDERED: SODIUM CHLORIDE 1,000 ML IV STA (22:19)
[2016-11-16] MEDS ORDERED: ONDANSETRON 4 MG/2 ML VIAL IVPB ONE (22:19)
--- NOTE | 2016-11-16 22:29 | PDOC ---
History of Present Illness <Leona Nelson - Last Filed: 11/17/16 02:56> - General History Source: Patient Exam Limitations: No Limitations - History of Present Illness Initial Comments: 11/16/16 22:22 Patient is a 26F with history of PCOS and migraines here today complaining of lower abdominal pain. The pain started about 24 hours ago and has been slowly building since. She describes the pain as like when she was having contractions when she was delivering her baby. She endorses nausea, and has not eaten for about 24 hours. She states that she is sexually active with only her , denies a history of STDs, and uses no control methods. LMP was 3 weeks ago. She states that this was a recent change, she had not had a period for the past 2 years due to her PCOS. She states that her pain is worse with movement, but is able to move around if she has to. She denies vomiting, fevers , chills, shortness of breath, and chest pain. PCP: Dr Kyle <David Sen - Last Filed: 11/17/16 04:52> - General Chief Complaint: Pain Stated Complaint: NAUSEA Time Seen by Provider: 11/16/16 22:05 Past History <Leona Nelson - Last Filed: 11/17/16 02:56> - Past Medical History Anemia: No Asthma: No Cancer: No Cardiac Disorders: No CVA: No COPD: No CHF: No DVT: No Dementia: No Diabetes: No HTN: Yes (h/o labile htn) Suicide Attempt (Hx): No Seizures: No Thyroid Disease: No - Immunization History Td Vaccination: Yes Immunization Up to Date: Yes - Psycho/Social/Smoking Cessation Hx Anxiety: No Suicidal Ideation: No Smoking Status: No Smoking History: Never smoked Have you smoked in the past 12 months: No Number of Cigarettes Smoked Daily: 0 Hx Alcohol Use: No Drug/Substance Use Hx: No Substance Use Type: None Hx Substance Use Treatment: No <David Sen - Last Filed: 11/17/16 04:52> - Past Medical History Allergies/Adverse Reactions: Allergies Allergy/AdvReac Type Severity Reaction Status Date / Time naproxen Allergy Verified 11/16/16 20:03 Home Medications: Ambulatory Orders Oxycodone HCl/Acetaminophen [Percocet 5/325 -] 1 tab PO Q6H #14 tablet MDD 4 Abd/GI Specific PMHX - Complaint Specific PMHX Colitis: No Diverticulitis: No Gall Bladder Disease: No GERD: No Hepatitis: No Irritable Bowel Synd (IBS): No Pancreatitis: No GI Ulcer Disease: No <MckinleyDavid - Last Filed: 11/17/16 04:52> Review of Systems - Review of Systems Comments:: 11/16/16 22:27 GENERAL/CONSTITUTIONAL: No fever or chills. HEAD, EYES, EARS, NOSE AND THROAT: No change in vision. No ear pain or discharge. No sore throat. CARDIOVASCULAR: No chest pain or shortness of breath RESPIRATORY: No cough, wheezing, or hemoptysis. GASTROINTESTINAL: Positive for nausea. Negative for: vomiting, diarrhea or constipation. GENITOURINARY: No dysuria, frequency, or change in urination. MUSCULOSKELETAL: No joint or muscle swelling or pain. No neck or back pain. SKIN: No rash NEUROLOGIC: Positive for headache. Negative for: vertigo, loss of consciousness , or change in strength/sensation. ALLERGIC/IMMUNOLOGIC: No hives or skin allergy. <David Sen - Last Filed: 11/17/16 04:52> *Physical Exam - Vital Signs Last Vital Signs Temp Pulse Resp BP Pulse Ox 98.8 F 105 H 20 156/86 100 11/16/16 20:04 11/16/16 20:04 11/16/16 20:04 11/16/16 20:04 11/16/16 20:04 <Leona Nelson - Last Filed: 11/17/16 02:56> - Vital Signs Last Vital Signs Temp Pulse Resp BP Pulse Ox 98.8 F 105 H 20 156/86 100 11/16/16 20:04 11/16/16 20:04 11/16/16 20:04 11/16/16 20:04 11/16/16 20:04 - Physical Exam Comments: 11/16/16 22:29 GENERAL: Awake, alert, and fully oriented, in moderate distress HEAD: No signs of trauma, normocephalic, atraumatic EYES: PERRLA, EOMI, sclera anicteric, conjunctiva clear ENT: Auricles normal inspection, hearing grossly normal, nares patent, oropharynx clear without exudates. Dry mucosa LUNGS: No distress, speaks full sentences, clear to auscultation bilaterally HEART: Regular rate and rhythm, normal S1 and S2, no murmurs, rubs or gallops, peripheral pulses normal and equal bilaterally. ABDOMEN: Tender to palpation in lower abdomen, voluntary guarding. Soft, no masses EXTREMITIES: Normal inspection, Normal range of motion, no edema. No clubbing or cyanosis. NEUROLOGICAL: Cranial nerves II through XII grossly intact. Normal speech, no focal sensorimotor deficits SKIN: Warm, Dry, normal turgor, no rashes or lesions noted. <David Sen - Last Filed: 11/17/16 04:52> ED Treatment Course - LABORATORY CBC & Chemistry Diagram: 11/16/16 00:01 11/16/16 00:01 - ADDITIONAL ORDERS Additional order review: Laboratory Results 11/16/16 11/16/16 21:50 00:01 Sodium 138 Potassium 4.1 Chloride 103 Carbon Dioxide 25 Anion Gap 10 BUN 9 Creatinine 0.6 Creat Clearance w eGFR > 60 Random Glucose 95 Calcium 9.4 Total Bilirubin 0.6 AST 11 L D ALT 20 D Alkaline Phosphatase 92 Total Protein 7.6 Albumin 4.1 Lipase 131 Urine Color Yellow Urine Appearance Clear Urine pH 6.0 Ur Specific Jelm 1.025 Urine Protein Negative Urine Glucose (UA) Negative Urine Ketones Negative Urine Blood Negative Urine Nitrite Negative Urine Bilirubin Negative Urine Urobilinogen Negative Ur Leukocyte Esterase Negative Urine HCG, Qual Negative 11/16/16 00:01 RBC 4.57 MCV 87.7 MCHC 34.2 RDW 12.9 MPV 8.9 Neutrophils % 67.7 Lymphocytes % 24.7 D Monocytes % 5.6 Eosinophils % 1.4 Basophils % 0.6 - Medications Given in the ED: ED Medications Discontinued Medications Generic Name Dose Route Start Last Admin Trade Name Freq PRN Reason Stop Dose Admin Hydromorphone HCl 0.5 mg 11/16/16 22:19 11/17/16 00:43 Dilaudid Injection - IVPUSH 11/16/16 22:20 0.5 mg ONCE ONE Administration Hydromorphone HCl 0.5 mg 11/17/16 01:28 11/17/16 02:29 Dilaudid Injection - IVPUSH 11/17/16 01:29 0.5 mg ONCE ONE Administration Sodium Chloride 1,000 mls @ 1,000 mls/hr 11/16/16 22:19 11/17/16 00:44 Normal Saline - IV 11/16/16 23:18 1,000 mls/hr ASDIR STA Administration Ondansetron HCl 4 mg 11/16/16 22:19 11/17/16 00:44 Zofran Injection IVPB 11/16/16 22:20 4 mg ONCE ONE Administration <Leona Nelson - Last Filed: 11/17/16 02:56> - LABORATORY CBC & Chemistry Diagram: 11/16/16 00:01 11/16/16 00:01 - ADDITIONAL ORDERS Additional order review: Laboratory Results 11/16/16 21:50 Urine Color Yellow Urine Appearance Clear Urine pH 6.0 Urine Protein Negative Urine Glucose (UA) Negative Urine Ketones Negative Urine Blood Negative Urine Nitrite Negative Urine Bilirubin Negative Urine Urobilinogen Negative Ur Leukocyte Esterase Negative Urine HCG, Qual Negative - RADIOLOGY Radiology Studies Ordered: Category Date Time Status TRANSVAGINAL ULTRASOUND US [US] Stat Ultrasound 11/16/16 22:20 Ordered <David Sen - Last Filed: 11/17/16 04:52> Medical Decision Making - Medical Decision Making 11/16/16 22:31 Patient is a 26 with history of PCOS here today with lower abdominal pain. Tachycardic to 105, other vital signs normal and stable. Will treat nausea and pain with zofran, 0.5mg of dilaudid and 1L of NS. Given patients description of her pain, I believe this pain is most likely POLE INSPECTOR related. UA normal. Upreg negative. Will do CBC, CMP, lipase and transvaginal ultrasound. 11/17/16 04:01 CBC shows no white count, CMP shows normal liver and bili values. Transvaginal ultrasound shows no torsion. Patient's pain not resolved. Given additional pain control. On re-examination, abdomen shows positive moon's sign. Gallbladder ultrasound shows cholelithiasis without signs of acute cholecystitis. Discharged to home with return precautions and outpatient surgery follow up. <David Sen - Last Filed: 11/17/16 04:52> *DC/Admit/Observation/Transfer - Discharge Dispostion Admit: No <Leona Nelson - Last Filed: 11/17/16 02:56> - Attestations Physician Attestion: 11/17/16 03:04 I, Dr. David Sen, attest that this document has been prepared under my direction and personally reviewed by me in its entirety. I further attest, that it accurately reflects all work, treatment, procedures and medical decision -making performed by me. <David Sen - Last Filed: 11/17/16 04:52> Diagnosis at time of Disposition: Cholelithiasis, Biliary colic - Discharge Dispostion Disposition: HOME Condition at time of disposition: Stable - Prescriptions Prescriptions: Oxycodone HCl/Acetaminophen [Percocet 5/325 -] 1 tab PO Q6H #14 tablet MDD 4 - Referrals Referrals: Wilber Vera MD [Primary Care Provider] - - Patient Instructions Printed Discharge Instructions: DI for Biliary Colic, Gallstones
[2016-11-17] MEDS ORDERED: ONDANSETRON 4 MG/2 ML VIAL ONE (00:30)
[2016-11-17] MEDS ORDERED: HYDROmorphone HCL CARPU-JECT 1 MG/1 ML DISP.SYRIN ONE ×2 (00:30→02:11)
[2016-11-17 00:36] LABS: BASOPHIL 0.6 % (0-2.0); EOSINOPHIL 1.4 % (0-4.5); MCHC 34.2 g/dl (32.0-36.0); MEAN CELL VOLUME 87.7 fl (80-96); MEAN PLT VOLUME 8.9 fl (7.5-11.1); NEUTROPHILS 67.7 % (42.8-82.8); PLATELET COUNT 335 K/MM3 (134-434); RDW 12.9 % (11.6-15.6); WHITE BLOOD COUNT 12.5 K/mm3 (4.0-10.0)
[2016-11-17 00:58] LABS: ALBUMIN 4.1 g/dl (3.4-5.0); ANION GAP 10 (8-16); BILIRUBIN,TOTAL 0.6 mg/dL (0.2-1.0); CALCIUM 9.4 mg/dL (8.5-10.1); CO2 25 mmol/L (21-32); CREATININE 0.6 mg/dL (0.55-1.02); GLUCOSE,RANDOM 95 mg/dL (74-106); SGOT/AST 11 U/L (15-37); SGPT/ALT 20 U/L (12-78); TOT PROT 7.6 g/dl (6.4-8.2)
[2016-11-17 00:59] LABS: ALK PHOS 92 U/L (45-117)
[2016-11-17] MEDS ORDERED: HYDROmorphone HCL CARPU-JECT 1 MG/1 ML DISP.SYRIN IVPUSH ONE (01:28)
--- NOTE | 2016-11-17 01:37 | PDOC ---
Attending Attestation - Resident Resident Name: GianniDavid ordaz - HPI HPI: 11/17/16 01:28 Abd pain and nausea since this AM. 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 Pt has RUQ guarding and tenderness. SHe complains of lower abdominal pain. She has PCO and after 2 years of no menses, she just had a menstrual period 3 weeks ago. Sono of the pelvis demonstrates normal ovaries. Abd is taut and diffusely tender. She will have RUQ sonogram because of her moon's sign on exam - even though her labs are normal. Pt will then have a CT scan of her abd pelvis. - Physicial Exam PE: 11/17/16 04:52 RUQ pain. Pt has a left flank scar- removal of a "third kidney" done in [place] when pt was 18 yo. - Medical Decision Making 11/17/16 04:54 Sonogram reveals a large GB stone, but no GB wall thickening. Pt's labs are normal. Minimally elevated WBC 12, normal LFTs. Pt will be asked to follow with outpatient gen surg and to maintain a lowfat diet.
== END 2016-11-17 03:33 | disposition home or self-care (01) ==
LOC: JER 19:57
PROC: 3E033NZ Introduction of Analgesics, Hypnotics, Sedatives into Peripheral Vein, Percutaneous Approach (ICD-10-PCS; principal; 2016-11-16)
PROC: 3E033GC Introduction of Other Therapeutic Substance into Peripheral Vein, Percutaneous Approach (ICD-10-PCS; 2016-11-16)
DX: K80.70 Calculus of gallbladder and bile duct without cholecystitis without obstruction (principal); E28.2 Polycystic ovarian syndrome
CPT/HCPCS: 36415; 76705-TC; 76830-TC; 80053; 81003; 83690; 84703; 85025; 99283-25

== ENCOUNTER 2016-11-23 16:18 | Emergency (ER) | payer SELFPAY ==
[2016-11-23 16:26] VITALS: BP 136/71; PULSE 103; TEMP 99.2; BMI 33.6
--- NOTE | 2016-11-23 17:24 | PDOC ---
History of Present Illness - General Chief Complaint: Ingrown toenail Stated Complaint: PAIN, ACUTE Time Seen by Provider: 11/23/16 16:49 History Source: Patient Exam Limitations: No Limitations - History of Present Illness Initial Comments: 11/23/16 17:09 26 yr female c/o pain to right great toenail for 4 days after cutting the nail to short. Past History - Past Medical History Allergies/Adverse Reactions: Allergies Allergy/AdvReac Type Severity Reaction Status Date / Time naproxen Allergy Verified 11/23/16 16:26 Home Medications: Ambulatory Orders Oxycodone HCl/Acetaminophen [Percocet 5/325 -] 1 tab PO Q6H #14 tablet MDD 4 Anemia: No Asthma: No Cancer: No Cardiac Disorders: No CVA: No COPD: No CHF: No DVT: No Dementia: No Diabetes: No HTN: Yes Suicide Attempt (Hx): No Seizures: No Thyroid Disease: No - Immunization History Td Vaccination: Yes Immunization Up to Date: Yes - Psycho/Social/Smoking Cessation Hx Anxiety: No Suicidal Ideation: No Smoking Status: No Smoking History: Never smoked Have you smoked in the past 12 months: No Number of Cigarettes Smoked Daily: 0 Hx Alcohol Use: No Drug/Substance Use Hx: No Substance Use Type: None Hx Substance Use Treatment: No Review of Systems - Review of Systems Able to Perform ROS?: Yes Is the patient limited Vincentian proficient: No Constitutional: No: Symptoms Reported HEENTM: No: Symptoms Reported Respiratory: No: Symptoms reported Cardiac (ROS): No: Symptoms Reported ABD/GI: No: Symptoms Reported : No: Symptoms Reported Musculoskeletal: Yes: See HPI Integumentary: No: Symptoms Reported *Physical Exam - Vital Signs Last Vital Signs Temp Pulse Resp BP Pulse Ox 99.2 F 103 H 18 136/71 100 11/23/16 16:24 11/23/16 16:24 11/23/16 16:24 11/23/16 16:24 11/23/16 16:24 - Physical Exam General Appearance: Yes: Nourished, Appropriately Dressed HEENT: positive: EOMI, NEGRITA Musculoskeletal: positive: Normal Inspection Extremity: positive: Normal Capillary Refill, Normal Range of Motion, Tender ( lateral nail ingrown to the lateral side great toe right foot , no redness or drainage ) Integumentary: positive: Normal Color, Dry, Warm Neurologic: positive: Normal Response, Motor Strength /5 Medical Decision Making - Medical Decision Making 11/23/16 17:24 cc: ingrown toenail for 4 days cut the nail to short no drainage no fever will clean and dress with sterile dressing follow up with [employer] operator yohannes for pain 11/23/16 17:25 *DC/Admit/Observation/Transfer Diagnosis at time of Disposition: Ingrown toenail without infection - Discharge Dispostion Disposition: HOME Condition at time of disposition: Good - Referrals Referrals: Po Kyle MD [Primary Care Provider] - Hamilton Temple MD [Staff Physician] - - Patient Instructions Printed Discharge Instructions: DI for Ingrown Toenail Additional Instructions: follow with the [employer] operator take tylenol or motrin if you are not allergic for pain remove the bandage in one day and let the area dry out then recover as needed do not cut the nails short
== END 2016-11-23 17:28 | disposition home or self-care (01) ==
LOC: JERFT 16:18
DX: L60.0 Ingrowing nail (principal)
CPT/HCPCS: 99281-25

== ENCOUNTER 2016-12-16 17:48 | Emergency (ER) | payer SELFPAY ==
[2016-12-16 17:53] VITALS: BP 134/77; PULSE 90; TEMP 98.6; BMI 31.8
[2016-12-16] MEDS ORDERED: DIPHTH,PERTUSS(ACELL),TET 0.5 ML DISP.SYRIN IM ONE (18:20)
--- NOTE | 2016-12-16 18:30 | PDOC ---
History of Present Illness - General Chief Complaint: Ingrown toenail Stated Complaint: INGROWN TOENAIL Time Seen by Provider: 12/16/16 17:56 History Source: Patient - History of Present Illness Occurred: reports: other Severity: Yes: moderate Lower Extremity Pain Location: left: 1st toe Past History - Past Medical History Allergies/Adverse Reactions: Allergies Allergy/AdvReac Type Severity Reaction Status Date / Time naproxen Allergy Verified 12/16/16 17:50 Home Medications: Ambulatory Orders Acetaminophen [Tylenol] 650 mg PO Q6H #30 tablet 12/16/16 Cephalexin [Keflex] 500 mg PO Q6H #28 capsule 12/16/16 Anemia: No Asthma: No Cancer: No Cardiac Disorders: No CVA: No COPD: No CHF: No DVT: No Dementia: No Diabetes: No HTN: Yes Seizures: No Thyroid Disease: No Other medical history: migraines, gallstones - Immunization History Td Vaccination: Yes Immunization Up to Date: Yes - Suicide/Smoking/Psychosocial Hx Smoking Status: No Smoking History: Never smoked Have you smoked in the past 12 months: No Number of Cigarettes Smoked Daily: 0 Hx Alcohol Use: No Drug/Substance Use Hx: No Substance Use Type: None Hx Substance Use Treatment: No Review of Systems - Review of Systems Constitutional: No: Chills, Fever *Physical Exam - Vital Signs Last Vital Signs Temp Pulse Resp BP Pulse Ox 98.6 F 90 18 134/77 100 12/16/16 17:50 12/16/16 17:50 12/16/16 17:50 12/16/16 17:50 12/16/16 17:50 - Physical Exam General Appearance: Yes: Appropriately Dressed. No: Apparent Distress HEENT: positive: Normal Voice Neck: positive: Supple Respiratory/Chest: negative: Respiratory Distress Integumentary: positive: Dry, Warm Neurologic: positive: Fully Oriented, Alert, Normal Mood/Affect Medical Decision Making - Medical Decision Making 12/16/16 18:21 26-year-old female, endorses history of recurrent ingrown toenails s/p going to a new nail salon 6 months ago, p/w pain and swelling to b/l great toes x several days. Also c/o some purulent discharge to R great toe. No f/c. Denies cutting nails too short or wearing tight shoes See exam Recurrent ingrown nail w/ R draining paronychia -nail excision to b/l great toee, no need for I&D -tetanus -abx -wound check in 48 hrs -podiatry f/u *DC/Admit/Observation/Transfer Diagnosis at time of Disposition: Ingrown nail - Discharge Dispostion Disposition: HOME Condition at time of disposition: Good - Prescriptions Prescriptions: Cephalexin [Keflex] 500 mg PO Q6H #28 capsule Acetaminophen [Tylenol] 650 mg PO Q6H #30 tablet - Referrals Referrals: Po Kyle MD [Primary Care Provider] - Nash Parada MD [Staff Physician] - - Patient Instructions Printed Discharge Instructions: DI for Ingrown Toenail Removal, Paronychia Additional Instructions: Take antibiotics as prescribed and return in 2 days for wound check Take tylenol as needed for pain Please follow up with podiatry in 1-2 weeks
[2016-12-16] MEDS ORDERED: ACETAMINOPHEN 325 MG TABLET (FP) ONE (18:48)
[2016-12-16] MEDS ORDERED: ACETAMINOPHEN 325 MG TABLET (FP) PO ONE (19:26)
== END 2016-12-16 19:03 | disposition home or self-care (01) ==
LOC: JERFT 17:48
PROC: 3E0234Z Introduction of Serum, Toxoid and Vaccine into Muscle, Percutaneous Approach (ICD-10-PCS; principal; 2016-12-16)
PROC: 0HBRXZZ Excision of Toe Nail, External Approach (ICD-10-PCS; 2016-12-16)
DX: L60.0 Ingrowing nail (principal)
CPT/HCPCS: 90715; 99281-25

== ENCOUNTER 2016-12-23 20:24 | Emergency (ER) | payer SELFPAY ==
[2016-12-23 20:30] VITALS: BP 128/78; PULSE 83; TEMP 98.6; BMI 31.8
[2016-12-24] MEDS ORDERED: ACETAMINOPHEN 325 MG TABLET (FP) PO ONE (00:34)
[2016-12-24] MEDS ORDERED: ACETAMINOPHEN 325 MG TABLET (FP) ONE (00:34)
--- NOTE | 2016-12-24 01:24 | PDOC ---
History of Present Illness - General Chief Complaint: Injury Stated Complaint: FALL/INJURY Time Seen by Provider: 12/24/16 00:16 - History of Present Illness Initial Comments: 12/24/16 01:23 26 yo F presents with pain to left forearm and shoulder s/p fall two weeks ago. Patient states she tripped on a bottle and landed on her left arm, but is unsure of how she landed on it, "maybe on my hand." She reports increased pain to dorsal aspect of forearm and left shoulder. Past History - Past Medical History Allergies/Adverse Reactions: Allergies Allergy/AdvReac Type Severity Reaction Status Date / Time naproxen Allergy Verified 12/23/16 20:26 Home Medications: Ambulatory Orders Acetaminophen [Tylenol] 650 mg PO Q6H #30 tablet 12/16/16 Cephalexin [Keflex] 500 mg PO Q6H #28 capsule 12/16/16 Acetaminophen [Tylenol -] 650 mg PO Q6H PRN #30 tablet 12/24/16 Anemia: No Asthma: No Cancer: No Cardiac Disorders: No CVA: No COPD: No CHF: No DVT: No Dementia: No Diabetes: No HTN: Yes Seizures: No Thyroid Disease: No Other medical history: gallstones - Immunization History Td Vaccination: Yes Immunization Up to Date: Yes - Suicide/Smoking/Psychosocial Hx Smoking Status: No Smoking History: Never smoked Have you smoked in the past 12 months: No Number of Cigarettes Smoked Daily: 0 Hx Alcohol Use: No Drug/Substance Use Hx: No Substance Use Type: None Hx Substance Use Treatment: No *Physical Exam - Vital Signs Last Vital Signs Temp Pulse Resp BP Pulse Ox 98.6 F 83 18 128/78 100 12/23/16 20:28 12/23/16 20:28 12/23/16 20:28 12/23/16 20:28 12/23/16 20:28 ED Treatment Course - ADDITIONAL ORDERS Additional order review: Laboratory Results 12/24/16 00:20 Urine HCG, Qual Negative - RADIOLOGY Radiology Studies Ordered: Category Date Time Status FOREARM- LEFT [RAD] Stat Radiology 12/24/16 00:32 Taken SHOULDER-LEFT [RAD] Stat Radiology 12/24/16 00:32 Taken WRIST-LEFT [RAD] Urgent Radiology 12/24/16 00:32 Taken - Medications Given in the ED: ED Medications Discontinued Medications Generic Name Dose Route Start Last Admin Trade Name Freq PRN Reason Stop Dose Admin Acetaminophen 650 mg 12/24/16 00:34 12/24/16 00:37 Tylenol - PO 12/24/16 00:35 650 mg ONCE ONE Administration Medical Decision Making - Medical Decision Making 12/24/16 01:48 tylenol 650 x-rays x-rays neg RICE therapy, neeraj bandage *DC/Admit/Observation/Transfer Diagnosis at time of Disposition: Arm pain Qualifiers: Laterality: left Qualified Code(s): M79.602 - Pain in left arm - Discharge Dispostion Disposition: HOME Condition at time of disposition: Stable Admit: No - Prescriptions Prescriptions: Acetaminophen [Tylenol -] 650 mg PO Q6H PRN #30 tablet PRN Reason: Pain - Referrals Referrals: Po Kyle MD [Primary Care Provider] - Hai Bauer MD [Staff Physician] - - Patient Instructions Printed Discharge Instructions: How To Perform RICE (Rest, Ice, Compress, Elevate), DI for Arm Pain Additional Instructions: Please take medication as needed for pain. Please follow the RICE (rest, ice, compress, elevate) instructions provided. Follow up with orthopedics if pain persists for more than 4-5 days. If you experience any new or worsening symptoms, please return to the ER. Por favor, tome los medicamentos necesarios para el dolor. Por favor, siga las instrucciones de RICE (descanso, hielo, compresa, elevar). Seguir con ortopedia si el dolor persiste por ms de 4-5 betancourt. Si experimenta algn sntoma nuevo o que empeora, por favor regrese a la makeda de emergencias.
== END 2016-12-24 01:58 | disposition home or self-care (01) ==
LOC: JERFT 20:24
DX: M79.602 Pain in left arm (principal)
CPT/HCPCS: 73030-TC-LT; 73090-TC-LT; 73110-TC-LT; 84703; 99281-25

== ENCOUNTER 2017-03-05 17:53 | Emergency (ER) | payer OTHER ==
[2017-03-05 18:09] VITALS: TEMP 99.4; BMI 28.7
--- NOTE | 2017-03-05 20:34 | PDOC ---
History of Present Illness - General Chief Complaint: Pain Stated Complaint: CHEST PAIN / STOMACH PAIN Time Seen by Provider: 03/05/17 20:24 History Source: Patient - History of Present Illness Initial Comments: 03/05/17 20:36 Patient is a 26 y.o. female with no self reported PMH who presents to our ED this evening c/o 1 day h/o of exacerbation RUQ abdominal pain that has been occurring intermittently for 2-3 months. Patient endorses nausea but denies vomiting, constipation, diarrhea. Patient also c/o chills. Patient states she was previously diagnosed with cholelithiasis however she is unable to find a surgeon who will accept her insurance. Past History - Past Medical History Allergies/Adverse Reactions: Allergies Allergy/AdvReac Type Severity Reaction Status Date / Time naproxen Allergy Verified 03/05/17 18:09 Home Medications: Ambulatory Orders NK [No Known Home Medication] 03/05/17 Anemia: No Asthma: No Cancer: No Cardiac Disorders: No CVA: No COPD: No CHF: No DVT: No Dementia: No Diabetes: No Disorders: Yes (GALLSTONES) HTN: No Seizures: No Thyroid Disease: No - Immunization History Td Vaccination: Yes Immunization Up to Date: Yes - Suicide/Smoking/Psychosocial Hx Smoking Status: No Smoking History: Never smoked Have you smoked in the past 12 months: No Number of Cigarettes Smoked Daily: 0 Information on smoking cessation initiated: No Hx Alcohol Use: No Drug/Substance Use Hx: No Substance Use Type: None Hx Substance Use Treatment: No Review of Systems - Review of Systems Constitutional: No: Chills, Fever Respiratory: No: Shortness of Breath Cardiac (ROS): No: Chest Pain ABD/GI: Yes: Abdominal cramping. No: Constipated, Diarrhea, Nausea, Vomiting : No: Burning, Dysuria All Other Systems: Reviewed and Negative *Physical Exam - Vital Signs Last Vital Signs Temp Pulse Resp BP Pulse Ox 99.4 F 122 H 20 132/63 99 03/05/17 18:06 03/05/17 18:06 03/05/17 18:06 03/05/17 18:06 03/05/17 18:06 - Physical Exam General Appearance: Yes: Nourished, Appropriately Dressed Neck: positive: Trachea midline, Supple Respiratory/Chest: positive: Lungs Clear Cardiovascular: positive: S1, S2 Gastrointestinal/Abdominal: positive: Normal Bowel Sounds, Tender (RUQ TTP), Soft, Other ((+) Bolton's sign) Musculoskeletal: negative: CVA Tenderness (R), CVA Tenderness (L) Neurologic: positive: Fully Oriented, Alert ED Treatment Course - LABORATORY CBC & Chemistry Diagram: 03/05/17 21:40 03/05/17 21:40 Medical Decision Making - Medical Decision Making 03/06/17 05:46 Patient is a 26 y.o. female who presents to the ED c/o acute exacerbation of chronic RUQ pain. Initial clinical suspicion for cholestasis given patient's PE (+ Bolton's) and PMH (h/o of cholelithiasis) however CT abdomen negative for cholecytitis. Patient's pain improved during course of admission Patient discharged home with instruction to call her insurance [employer] for a list of surgeon who can perform her cholecystectomy under her current policy. *DC/Admit/Observation/Transfer Diagnosis at time of Disposition: Cholelithiasis - Discharge Dispostion Disposition: HOME Condition at time of disposition: Good Admit: No - Referrals Referrals: STAFF,NOT ON [Primary Care Provider] - - Patient Instructions Printed Discharge Instructions: DI for Abdominal Pain-Adult Additional Instructions: Please call your insurance company and ask for a list of surgeons who are covered by your policy to perform your gallbladder removal. Please return to the Emergency Department for any worsening or concerning symptoms. - Post Discharge Activity
[2017-03-05 20:39] LABS: URINE APPEARANCE CLEAR; URINE BILIRUBIN NEGATIVE (NEGATIVE); URINE BLOOD NEGATIVE (NEGATIVE); URINE COLOR YELLOW; URINE GLUCOSE (UA) NEGATIVE (NEGATIVE); URINE KETONE NEGATIVE (NEGATIVE); URINE LEUK ESTERASE NEGATIVE (NEGATIVE); URINE NITRITE NEGATIVE (NEGATIVE); URINE PROTEIN NEGATIVE (NEGATIVE); URINE UROBILINOGEN NEGATIVE mg/dL (0.2-1.0)
[2017-03-05] MEDS ORDERED: ACETAMINOPHEN 325 MG TABLET (FP) PO ONE (21:20)
[2017-03-05] MEDS ORDERED: ACETAMINOPHEN 325 MG TABLET (FP) ONE (21:23)
--- NOTE | 2017-03-05 21:24 | PDOC ---
Attending Attestation - HPI HPI: 03/05/17 21:24 23 year old female, with significant past medical history of cholelithiasis, who presents to the emergency room today complaining of epigastric pain and nausea x1 day. <Bridgette Brown - Last Filed: 03/05/17 21:24> - Resident Resident Name: Clarice Hummel - ED Attending Attestation I have performed the following: I have examined & evaluated the patient, The case was reviewed & discussed with the resident, I agree w/resident's findings & plan, Exceptions are as noted - Physicial Exam PE: 03/06/17 19:38 *Physical Exam General Appearance: Yes: Appropriately Dressed. No: Apparent Distress, Intoxicated HEENT: positive: EOMI, NEGRITA, Normal ENT Inspection, Normal Voice, TMs Normal, Pharynx Normal. negative: Pale Conjunctivae, Photophobia, Scleral Icterus (R), Scleral Icterus (L) Neck: positive: Trachea midline, Normal Thyroid, Supple. negative: Tender, Rigid, Carotid bruit, Stridor, Lymphadenopathy (R), Lymphadenopathy (L), Thyromegaly Respiratory/Chest: positive: Lungs Clear, Normal Breath Sounds. negative: Chest Tender, Respiratory Distress, Accessory Muscle Use, Labored Respiration, RES, Crackles, Rales, Rhonchi, Stridor, Wheezing, Dullness Cardiovascular: positive: Regular Rhythm, Regular Rate, S1, S2. negative: Edema , JVD, Murmur, Bradycardia, Tachycardia Vascular Pulses: Dorsalis-Pedis (R): 2+, Doralis-Pedis (L): 2+ Gastrointestinal/Abdominal: positive: Normal Bowel Sounds, Flat, Soft. + RUQ tenderness negative: Organomegaly, Pulsatile Mass, Increased Bowel Sounds, Decreased BS, Distended, Guarding, Rebound, Hernia, Hepatomegaly, Spleenomegaly Lymphatic: negative: Adenopathy, Tenderness Musculoskeletal: positive: Normal Inspection. negative: CVA Tenderness, Decreased Range of Motion Extremity: positive: Normal Capillary Refill, Normal Inspection, Normal Range of Motion, Pelvis Stable. negative: Tender, Pedal Edema, Swelling, Erythema Integumentary: positive: Normal Color, Dry, Warm. negative: Cyanotic, Erythema , Jaundice, Rash Neurologic: positive: core winder II-XII NML intact, Fully Oriented, Alert, Normal Mood/ Affect, Motor Strength 5/5. negative: EOM Palsy, Facial Droop, Sensory Deficit - Medical Decision Making 03/06/17 19:38 Pt treated and released. <Andrés Simon - Last Filed: 03/06/17 19:39>
[2017-03-05 21:52] LABS: BASOPHIL 0.3 % (0-2.0); EOSINOPHIL 1.5 % (0-4.5); MCHC 34.2 g/dl (32.0-36.0); MEAN CELL VOLUME 87.7 fl (80-96); MEAN PLT VOLUME 8.5 fl (7.5-11.1); NEUTROPHILS 74.4 % (42.8-82.8); PLATELET COUNT 262 K/MM3 (134-434); RDW 13.7 % (11.6-15.6); WHITE BLOOD COUNT 7.8 K/mm3 (4.0-10.0)
[2017-03-05 22:26] LABS: ALBUMIN 3.9 g/dl (3.4-5.0); ANION GAP 5 (8-16); BILIRUBIN,TOTAL 0.9 mg/dL (0.2-1.0); CALCIUM 8.2 mg/dL (8.5-10.1); CO2 26 mmol/L (21-32); CREATININE 0.6 mg/dL (0.55-1.02); GLUCOSE,RANDOM 89 mg/dL (74-106); SGOT/AST 9 U/L (15-37); SGPT/ALT 15 U/L (12-78); TOT PROT 7.6 g/dl (6.4-8.2)
[2017-03-05 22:27] LABS: ALK PHOS 82 U/L (45-117); CPK 54 IU/L (26-192)
[2017-03-05 22:28] LABS: TROPONIN I < 0.02 ng/ml (0.00-0.05)
[2017-03-05 22:36] LABS: URINE LEUK ESTERASE Negative (NEGATIVE)
[2017-03-05 22:38] LABS: INR 1.06 (0.82-1.09)
[2017-03-05 22:41] LABS: ACTIVATED PTT 28.3 SECONDS (26.9-34.4)
[2017-03-06 00:43] VITALS: BP 110/64; PULSE 91
--- NOTE | 2017-03-10 15:11 | EKG ---
Test Reason : Blood Pressure : / mmHG Vent. Rate : 111 BPM Atrial Rate : 111 BPM P-R Int : 132 ms QRS Dur : 092 ms QT Int : 308 ms P-R-T Axes : 072 062 033 degrees QTc Int : 418 ms SINUS TACHYCARDIA POSSIBLE LEFT ATRIAL ENLARGEMENT INCOMPLETE RIGHT BUNDLE BRANCH BLOCK BORDERLINE ECG WHEN COMPARED WITH ECG OF 14-FEB-2016 12:51, NO SIGNIFICANT CHANGE WAS FOUND Confirmed by ANNE-MARIE ESPINOZA MD ([id number]) on 03/10/2017 3:11:10 PM Referred By: Confirmed By:ANNE-MARIE ESPINOZA MD
== END 2017-03-06 00:43 | disposition home or self-care (01) ==
LOC: JER 17:53
DX: K80.20 Calculus of gallbladder without cholecystitis without obstruction (principal)
CPT/HCPCS: 36415; 76705-TC; 80053; 81003; 82550; 84484; 84703; 85025; 85610; 85730; 86850; 86900; 86901; 87086; 93005; 93010; 99284-25

== ENCOUNTER 2017-05-05 17:26 | Emergency (ER) | payer OTHER ==
[2017-05-05 17:50] VITALS: BP 156/100; PULSE 88; TEMP 98.2; BMI 26.6
--- NOTE | 2017-05-05 17:50 | PDOC ---
Rapid Medical Evaluation Chief Complaint: Injury Time Seen by Provider: 05/05/17 17:46 Medical Evaluation: Allergies Allergy/AdvReac Type Severity Reaction Status Date / Time naproxen Allergy Verified 05/05/17 17:46 05/05/17 17:46 The patient presents with a chief complaint of: Thinks she has an infection in her hand. Had similar symptoms last year. Hurts to bend finger. no trauma. I have performed a brief in-person evaluation of this patient; Pertinent physical exam findings: ambulatory, in no respiratory distress. Pain with flexion of R 2nd finger. area of erythema. Afebrile I have ordered the following: x-ray The patient will proceed to the ED for further evaluation.
[2017-05-05] MEDS ORDERED: SULFAMETHOXAZOLE/TRIMETHOPRIM 800MG/160MG D.S. TABLET PO ONE (18:50)
--- NOTE | 2017-05-05 18:50 | PDOC ---
History of Present Illness - General Chief Complaint: Redness To Affected Area Stated Complaint: FINGER INJURY Time Seen by Provider: 05/05/17 17:46 History Source: Patient Exam Limitations: No Limitations - History of Present Illness Initial Comments: 05/05/17 18:45 26-year-old female with no medical history presents to the emergency department complaining of pain to the right second medial PIP/redness since yesterday. Patient denies any injury or trauma. Patient states she had similar symptoms times one year ago and was treated by an orthopedic surgeon who gave her an MRI. Patient states the orthopedic surgeon informed her it was a foreign body in her right index finger which she never had removed. Patient denies fever, chills, extremity numbness or tingling sensation. The pain is exacerbated on flexion. Patient states she can passively flex her fingers but with pain to the right index finger. Patient is pain is alleviated at rest with ice. Patient denies any other complaints/injuries. Timing/Duration: reports: yesterday Past History - Past Medical History Allergies/Adverse Reactions: Allergies Allergy/AdvReac Type Severity Reaction Status Date / Time naproxen Allergy Verified 05/05/17 17:46 Home Medications: Ambulatory Orders Sulfamethoxazole/Trimethoprim [Bactrim Ds -] 1 tab PO BID #14 tablet 05/05/17 Anemia: No Asthma: No Cancer: No Cardiac Disorders: No CVA: No COPD: No CHF: No DVT: No Dementia: No Diabetes: No Disorders: Yes (GALLSTONES) HTN: No Seizures: No Thyroid Disease: No Other medical history: MIGRAINES - Immunization History Td Vaccination: Yes Immunization Up to Date: Yes - Suicide/Smoking/Psychosocial Hx Smoking Status: No Smoking History: Never smoked Have you smoked in the past 12 months: No Number of Cigarettes Smoked Daily: 0 Information on smoking cessation initiated: No Hx Alcohol Use: No Drug/Substance Use Hx: No Substance Use Type: None Hx Substance Use Treatment: No Review of Systems - Review of Systems Able to Perform ROS?: Yes Comments:: 05/05/17 18:46 CONSTITUTIONAL: Absent: fever, chills, diaphoresis, generalized weakness, malaise, loss of appetite MUSCULOSKELETAL: Absent: myalgia, arthralgia, joint swelling SKIN: Absent: rash, itching, pallor right medial pip 2nd digit +pain Is the patient limited Armenian proficient: No *Physical Exam - Vital Signs Last Vital Signs Temp Pulse Resp BP Pulse Ox 98.2 F 88 18 156/100 100 05/05/17 17:47 05/05/17 17:47 05/05/17 17:47 05/05/17 17:47 05/05/17 17:47 - Physical Exam Comments: 05/05/17 18:47 GENERAL: Well developed, well nourished. Awake and alert. No acute distress. MUSCULOSKELETAL Normal range of motion at all joints. No bony deformities or tenderness. No CVA tenderness. EXTREMITIES: excluding right 2nd digit No cyanosis. No clubbing. No edema. No calf tenderness. SKIN: Warm and dry. Normal capillary refill. No rashes. No jaundice. Right 2nd digit/index finger +erythema without lymphangitis to medial pip/~1x1cm Neg drainage neg skin disruption cap refill <2sec 2 point discrimination F.R>O.M>/pain ED Treatment Course - RADIOLOGY Radiograph Interpretation: 05/05/17 18:47 Xray 3v right hand: neg fx/fb/dislocations *DC/Admit/Observation/Transfer Diagnosis at time of Disposition: Cellulitis of finger, right - Discharge Dispostion Condition at time of disposition: Stable Admit: No - Prescriptions Prescriptions: Sulfamethoxazole/Trimethoprim [Bactrim Ds -] 1 tab PO BID #14 tablet - Referrals Referrals: Humberto Gaviria MD [Staff Physician] - - Patient Instructions Printed Discharge Instructions: DI for Cellulitis -- Adult Additional Instructions: Elevate Take antibiotics as prescribed: Bactrim DS 1 tablet twice a day until completion Take Tylenol as needed for pain You must follow-up with the orthopedic surgeon Return back to the emergency department for severe/persistent/worsening symptoms , red streaks/fever - Post Discharge Activity
[2017-05-05] MEDS ORDERED: SULFAMETHOXAZOLE/TRIMETHOPRIM 800MG/160MG D.S. TABLET ONE (19:09)
== END 2017-05-05 19:48 | disposition home or self-care (01) ==
LOC: JERFT 17:26
DX: L03.011 Cellulitis of right finger (principal)
CPT/HCPCS: 73130-TC-RT-FY; 84703; 99281-25